=== PATIENT | female | born 1990 | race Caucasian/White ===

== ENCOUNTER 2016-04-28 22:35 | Emergency (ER) | payer SELFPAY ==
[~2016-04-28] VITALS: Ht 160 cm; Wt 91.0 kg
[~2016-04-28 22:35] MED LIST: NO MEDS
[2016-04-29 00:49] VITALS: BP 128/79
== END 2016-04-29 00:51 | disposition home or self-care (01) ==
LOC: ER 23:25
DX: K01.1 Impacted teeth (principal); F17.200 Nicotine dependence, unspecified, uncomplicated
CPT/HCPCS: 99283

== ENCOUNTER 2017-08-25 07:00 | Emergency (ER) | payer SELFPAY ==
[~2017-08-25] VITALS: Ht 160 cm; Wt 84.0 kg
[2017-08-25 07:22] VITALS: BP 121/56
== END 2017-08-25 12:07 | disposition left against medical advice (07) ==
LOC: ER 07:00
DX: R10.9 Unspecified abdominal pain (principal); Z53.21 Procedure and treatment not carried out due to patient leaving prior to being seen by health care provider

== ENCOUNTER 2025-01-03 18:20 | Emergency (ER) | payer MEDICAID ==
[~2025-01-03] VITALS: Ht 170.2 cm; Wt 91.0 kg
[2025-01-03] MEDS: MORPHINE SULFATE 4 MG/ML INJ (FOR IV/IM USE) IM ONE (19:11)
[2025-01-03] MEDS ORDERED: PROPOFOL 200MG/20ML VIAL IV ONE (19:15)
[2025-01-03] MEDS: SODIUM CHLORIDE 0.9% 1,000 ML IV ONE (20:30)
[2025-01-03] MEDS: MORPHINE SULFATE 4 MG/ML INJ (FOR IV/IM USE) IV ONE ×2 (20:30→23:14)
[2025-01-03 21:11] VITALS: O2SAT 100
[2025-01-03] MEDS: PROPOFOL 200MG/20ML VIAL IV NR (21:13)
[2025-01-03 23:35] VITALS: BP 117/65; PULSE 90; RESP 11; TEMP 37; O2SAT 97
== END 2025-01-03 23:49 | disposition short-term general hospital (02) ==
LOC: ER 18:20 → CMPBEDREQ 01-04 11:26
DX: S82.832A Other fracture of upper and lower end of left fibula, initial encounter for closed fracture (principal); S93.05XA Dislocation of left ankle joint, initial encounter; S09.8XXA Other specified injuries of head, initial encounter; Z90.49 Acquired absence of other specified parts of digestive tract; W10.9XXA Fall (on) (from) unspecified stairs and steps, initial encounter; Y93.89 Activity, other specified; Y92.89 Other specified places as the place of occurrence of the external cause; Y99.8 Other external cause status
CPT/HCPCS: 73600; 73610; 70450; 72131; 23650; 96372; 99152; 99285; J2704; J2270; J7030; Z7610; A6449